=== PATIENT | female | born 1970 | race Caucasian/White ===

== ENCOUNTER 2022-08-30 13:50 | Emergency (ER) | payer MEDICAID ==
[~2022-08-30] VITALS: Ht 182 cm; Wt 75.0 kg
[2022-08-30] MEDS ORDERED: TETANUS,DIPTH,PERTUSS P/F (BOOSTRIX) 0.5 ML VIAL IM ONE (14:00)
[2022-08-30] MEDS ORDERED: AUGMENTIN 875 MG TAB (AMOXICILLIN/CLAVULANATE) PO STA (14:00)
[2022-08-30] MEDS ORDERED: AMOX1TAB12 PO (14:06)
--- NOTE | 2022-08-30 14:07 | ED Integumentary General ---
General Chief Complaint: Bite-Animal/Human/Insect Stated Complaint: LEFT HAND INJURY, DOG BITE Source: patient History of Present Illness Date Seen by Provider: Aug 30, 2022 Time Seen by Provider: 13:53 Initial Comments 51 yo female presenting with complaint of dog bite to her left hand. She was eating ribs and watching football and went to give her dog some of the food. The dog had bit down on her hand and caught her left ring finger. She had cleaned the wound with water at the time. She is unsure of her last tetanus booster. She states the dog is up to date on vaccinations. The bleeding is controlled with the 2 puncture wounds on the left ring finger. Mild pain and tingling to the finger but has full range of motion and normal blood flow. Timing/Duration: just prior to arrival Severity: mild Location: hands (left ring finger) Possible Cause: other (dog bite) Associated Symptoms: No blisters, No change in skin texture, No edema, No fever, No flushing, No headache, No hives, No jaundice, No malaise, No nasal congestion, No numbness, No pallor, No petechiae, No rash, No sore throat, No swelling/mass/lumps; tingling Allergies and Home Medications Allergies Coded Allergies: diphenhydramine (Verified Allergy, Unknown, 08/30/22) Patient Home Medication List Home Medication List Reviewed: Yes Amoxicillin/Potassium Clav (Amox Tr-K Clv 875-125 mg Tab) 875 Mg-125 Mg Tablet, 1 EACH PO BID Prescribed by: DELFINA RAMOS on 08/30/22 1406 Review of Systems Review of Systems Constitutional: No chills, No fever EENTM: no symptoms reported Respiratory: no symptoms reported Cardiovascular: no symptoms reported Gastrointestinal: no symptoms reported Genitourinary: no symptoms reported Musculoskeletal: see HPI Skin: see HPI Psychiatric/Neurological: See HPI Past Yrycigj-Noyvlv-Zbfjhv Hx Past Medical History Surgery/Hospitalization HX: Depression, anxiety, Physical Exam Vital Signs Capillary Refill : General Appearance: WD/WN, no apparent distress Cardiovascular: normal peripheral pulses Extremities: normal range of motion, normal capillary refill, other (mild tenderness at site of puncture wounds on finger. No crepitus or bony abnormality. Neurovascular and tendon intact) Neurologic/Psychiatric: syrup maker II-XII nml as tested, no motor/sensory deficits, alert, oriented x 3 Skin: normal color, warm/dry Skin Problem Location: upper extremities (left ring finger) Skin Problem Character: tenderness (mild), other (2 small puncture wounds to left ring finger, one on extensor surface and one on flexor surface.) Progress/Results/Core Measures Results/Orders My Orders Orders - DELFINA RAMOS MD Dipht,Pertuss(Acell),Tet Adult (Boostrix (08/30/22 14:00) Amoxicillin/Clavulanate Tablet (Augmenti (08/30/22 14:00) Medications Given in ED Current Medications Medications Dose Ordered Sig/Mario Route Start Time Stop Time Status Last Admin Dose Admin Diphtheria/ Tetanus/Acell Pertussis 0.5 ml ONCE ONCE IM 08/30/22 14:00 08/30/22 14:02 DC 08/30/22 14:12 0.5 ML Progress Progress Note : Progress Note Potential concern for rabies or communicable disease. As patient states that her dog had all of its shots and there was no concern for rabies. The wounds are not gaping or large enough that they would need any stitching or closure. Will clean here with Betadine and sterile water. Apply small amount of antibiotic ointment and nonstick dressing. Start her on Augmentin and continue that twice a day for the next 7 days. Counseled on follow-up and return precautions. Advised she could use [id number] acetaminophen and ibuprofen if needed for pain. Keep the wound clean with soap and water and apply antibiotic ointment at least twice a day. Advised that she had redness streaking up her hand, pus draining from the wound, fever of 101 Fahrenheit she should be seen again as she may need IV antibiotics. Departure Impression Primary Impression: Open wound of left ring finger due to dog bite Disposition: HOME, SELF-CARE Condition: Stable Departure-Patient Inst. Decision time for Depature: 14:05 Referrals: NO,LOCAL PHYSICIAN (PCP/Family) Primary Care Physician Patient Instructions: Animal Bites ED, Wound Care ED Add. Discharge Instructions: Keep wound clean with soap and water. You could apply antibiotic ointment at least twice a day for the next few days while wounds are healing. If you see redness streaking up your hand, fever over 101 Fahrenheit, pus draining from the wounds than you should return or be seen as you would likely need IV antibiotics. You could take acetaminophen or ibuprofen [id number] to try and help with pain All discharge instructions reviewed with patient and/or family. Voiced understanding. Scripts Amoxicillin/Potassium Clav (Amox Tr-K Clv 875-125 mg Tab) 875 Mg-125 Mg Tablet 1 EACH PO BID for dog bite for 7 Days, #14 TAB 0 Refills Prov: DELFINA RAMOS MD 08/30/22 DELFINA RAMOS MD Aug 30, 2022 14:07
[2022-08-30 14:31] VITALS: BP 146/95
== END 2022-08-30 14:17 | disposition home or self-care (01) ==
LOC: ER FS 13:52
DX: S61.205A Unspecified open wound of left ring finger without damage to nail, initial encounter (principal); Z23 Encounter for immunization; W54.0XXA Bitten by dog, initial encounter
CPT/HCPCS: 90715; 99283